=== PATIENT | female | born 1970 | race Caucasian/White ===

== ENCOUNTER 2022-04-25 07:41 | Emergency (ER) | payer SELFPAY ==
[~2022-04-25] VITALS: Ht 157.4 cm; Wt 54.4 kg
[~2022-04-25 07:41] MED LIST: DARVOCET N 1001 TAB PO; DAYPRO600 M1 PO; MEDROL DOSEPAK4 MG PO; MOTRIN600 MG PO; MOTRIN800 MG PO; NAPROSYN500 MG PO; NKHM; PREDNISONE20 MG PO; ROBAXIN500 M1 PO; ROBAXIN750 MG PO; ROBITUSSIN AC 110 ML PO; TRAMADOL HCL50 MG PO; TRIMOX500 MG PO; VICODIN 500 MG-1 TAB PO; ZITHROMAX Z PA250 MG PO; ZITHROMAX250 MG PO
[2022-04-25] MEDS ORDERED: AMOX-CLAV 875-1 EACH PO (09:18)
== END 2022-04-25 09:21 | disposition home or self-care (01) ==
LOC: ED 07:41
DX: J01.90 Acute sinusitis, unspecified (principal); Z20.822 Contact with and (suspected) exposure to COVID-19; B96.89 Other specified bacterial agents as the cause of diseases classified elsewhere; Z98.51 Tubal ligation status